=== PATIENT | female | born 1950 | race Two or more races ===

== ENCOUNTER 2017-11-07 14:28 | Outpatient (CLI) | payer OTHER ==
[~2017-11-07 14:28] MED LIST: IBUPROFEN800 MG PO; ORPH100T PO
== END 2017-11-07 14:36 | disposition home or self-care (01) ==
LOC: RAD 14:28
DX: S72.092A Other fracture of head and neck of left femur, initial encounter for closed fracture (principal)

== ENCOUNTER 2018-07-04 14:11 | Outpatient (CLI) | payer OTHER | END 2018-07-04 15:00 | disposition home or self-care (01) | LOC: NUCLEAR 14:11 | DX: M81.0 Age-related osteoporosis without current pathological fracture (principal) ==

== ENCOUNTER 2020-11-12 10:35 | Outpatient (CLI) | payer OTHER | END 2020-11-12 10:58 | disposition home or self-care (01) | LOC: TOM 10:35 | PROVIDERS: ATTEND Family Medicine | DX: R91.1 Solitary pulmonary nodule (principal); R07.89 Other chest pain ==

== ENCOUNTER → 2020-11-14 | Outpatient (CLI) | payer OTHER | END | disposition home or self-care (01) | LOC: NUCLEAR 15:11 | PROVIDERS: ATTEND Family Medicine | DX: M81.0 Age-related osteoporosis without current pathological fracture (principal) ==

== ENCOUNTER 2020-11-21 08:14 | Outpatient (CLI) | payer OTHER | END 2020-11-21 08:20 | disposition home or self-care (01) | LOC: TOM 08:14 | PROVIDERS: ATTEND Specialist | DX: K57.92 Diverticulitis of intestine, part unspecified, without perforation or abscess without bleeding (principal) ==

== ENCOUNTER 2021-06-23 14:57 | Outpatient (CLI) | payer OTHER | END 2021-06-23 15:10 | disposition home or self-care (01) | LOC: RAD 14:57 | PROVIDERS: ATTEND Internal Medicine Rheumatology | DX: M25.511 Pain in right shoulder (principal); M54.2 Cervicalgia; M75.112 Incomplete rotator cuff tear or rupture of left shoulder, not specified as traumatic; M81.0 Age-related osteoporosis without current pathological fracture; M47.812 Spondylosis without myelopathy or radiculopathy, cervical region; M47.814 Spondylosis without myelopathy or radiculopathy, thoracic region ==

== ENCOUNTER 2022-12-15 13:03 | Outpatient (CLI) | payer OTHER | END 2022-12-15 13:04 | disposition home or self-care (01) | LOC: NUCLEAR 13:03 | PROVIDERS: ATTEND Physical Medicine & Rehabilitation | DX: M81.0 Age-related osteoporosis without current pathological fracture (principal) ==

== ENCOUNTER 2023-03-28 10:39 | Outpatient (CLI) | payer OTHER | END 2023-03-28 10:59 | disposition home or self-care (01) | LOC: TOM 10:39 | PROVIDERS: ATTEND Urology | DX: N39.0 Urinary tract infection, site not specified (principal); U07.1 COVID-19 ==

== ENCOUNTER 2023-05-31 15:45 | Outpatient (CLI) | payer OTHER | END 2023-05-31 15:55 | disposition home or self-care (01) | LOC: RAD 15:45 | DX: M54.2 Cervicalgia (principal); M54.59 Other low back pain; M75.81 Other shoulder lesions, right shoulder; M75.82 Other shoulder lesions, left shoulder ==

== ENCOUNTER 2024-08-25 09:41 | Outpatient (CLI) | payer OTHER | END 2024-08-25 09:45 | disposition home or self-care (01) | LOC: RAD 09:41 | PROVIDERS: ATTEND Physical Medicine & Rehabilitation | DX: S42.302A Unspecified fracture of shaft of humerus, left arm, initial encounter for closed fracture (principal); W19.XXXA Unspecified fall, initial encounter ==

== ENCOUNTER 2024-09-06 15:00 | Outpatient (CLI) | payer OTHER | END 2024-09-06 15:06 | disposition home or self-care (01) | LOC: RAD 15:00 | PROVIDERS: ATTEND Physical Medicine & Rehabilitation | DX: M54.50 Low back pain, unspecified (principal); R10.2 Pelvic and perineal pain; W19.XXXA Unspecified fall, initial encounter ==

== ENCOUNTER 2025-02-01 13:04 | Outpatient (CLI) | payer OTHER | END 2025-02-01 13:25 | disposition home or self-care (01) | LOC: SONOGRAMA 13:04 | PROVIDERS: ATTEND Urology | DX: N39.0 Urinary tract infection, site not specified (principal) ==

== ENCOUNTER 2025-05-14 12:34 | Outpatient (CLI) | payer OTHER | END 2025-05-14 12:42 | disposition home or self-care (01) | LOC: TOM 12:34 | DX: J32.0 Chronic maxillary sinusitis (principal) ==

== ENCOUNTER 2025-05-23 08:42 | Outpatient (CLI) | payer OTHER | END 2025-05-23 08:50 | disposition home or self-care (01) | LOC: SONOGRAMA 08:42 | PROVIDERS: ATTEND Internal Medicine Gastroenterology | DX: R16.1 Splenomegaly, not elsewhere classified (principal) ==

== ENCOUNTER 2025-09-23 10:51 | Outpatient (CLI) | payer OTHER | END 2025-09-23 10:53 | disposition home or self-care (01) | LOC: RAD 10:51 | PROVIDERS: ATTEND Orthopaedic Surgery Hand Surgery | DX: M85.842 Other specified disorders of bone density and structure, left hand (principal) ==